=== PATIENT | male | born 1945 ===

== ENCOUNTER → 2018-03-18 | Outpatient (CLI) | payer OTHER ==
[~2018-03-18] MED LIST: METFORMIN HCL500 MG; [UNRECOGNIZED DRUG - OTHER]
== END | disposition home or self-care (01) ==
LOC: SONOGRAMA 09:59
DX: R10.84 Generalized abdominal pain (principal); N18.3 Chronic kidney disease, stage 3 (moderate); R31.9 Hematuria, unspecified

== ENCOUNTER → 2019-06-02 15:59 | Outpatient (CLI) | payer OTHER | END | disposition home or self-care (01) | LOC: LAB 15:59 | DX: D69.49 Other primary thrombocytopenia (principal) ==

== ENCOUNTER 2019-10-24 09:34 | Outpatient (CLI) | payer OTHER | END 2019-10-24 09:43 | disposition home or self-care (01) | LOC: LAB 09:34 | PROVIDERS: ATTEND Internal Medicine Hematology & Oncology | DX: D50.8 Other iron deficiency anemias (principal); I10 Essential (primary) hypertension; D51.1 Vitamin B12 deficiency anemia due to selective vitamin B12 malabsorption with proteinuria; D51.0 Vitamin B12 deficiency anemia due to intrinsic factor deficiency; D69.6 Thrombocytopenia, unspecified; E03.8 Other specified hypothyroidism; E06.3 Autoimmune thyroiditis; R97.0 Elevated carcinoembryonic antigen [CEA]; R97.8 Other abnormal tumor markers; R97.20 Elevated prostate specific antigen [PSA]; D63.1 Anemia in chronic kidney disease; D68.8 Other specified coagulation defects; B96.81 Helicobacter pylori [H. pylori] as the cause of diseases classified elsewhere; E11.9 Type 2 diabetes mellitus without complications; R94.5 Abnormal results of liver function studies; E78.2 Mixed hyperlipidemia; N41.8 Other inflammatory diseases of prostate ==

== ENCOUNTER 2019-12-29 09:00 | Outpatient (CLI) | payer OTHER | END 2019-12-29 15:00 | disposition home or self-care (01) | LOC: LAB 09:00 | PROVIDERS: ATTEND Internal Medicine Hematology & Oncology | DX: D50.8 Other iron deficiency anemias (principal); I10 Essential (primary) hypertension; D51.8 Other vitamin B12 deficiency anemias; E03.8 Other specified hypothyroidism; C73 Malignant neoplasm of thyroid gland; D69.6 Thrombocytopenia, unspecified; B96.81 Helicobacter pylori [H. pylori] as the cause of diseases classified elsewhere; E11.9 Type 2 diabetes mellitus without complications; R94.5 Abnormal results of liver function studies; E78.2 Mixed hyperlipidemia; N41.8 Other inflammatory diseases of prostate ==

== ENCOUNTER 2019-12-29 09:26 | Outpatient (CLI) | payer OTHER | END 2019-12-29 09:32 | disposition home or self-care (01) | LOC: SONOGRAMA 09:26 | PROVIDERS: ATTEND Internal Medicine Hematology & Oncology | DX: E03.8 Other specified hypothyroidism (principal); D69.49 Other primary thrombocytopenia; I10 Essential (primary) hypertension; B96.81 Helicobacter pylori [H. pylori] as the cause of diseases classified elsewhere; E11.9 Type 2 diabetes mellitus without complications; R94.5 Abnormal results of liver function studies; E78.2 Mixed hyperlipidemia; N41.8 Other inflammatory diseases of prostate; E04.2 Nontoxic multinodular goiter ==

== ENCOUNTER 2021-03-25 11:45 | Outpatient (CLI) | payer OTHER | END 2021-03-25 11:46 | disposition home or self-care (01) | LOC: RAD 11:45 | PROVIDERS: ATTEND Internal Medicine Geriatric Medicine | DX: M54.59 Other low back pain (principal) ==

== ENCOUNTER 2022-01-24 20:15 | Outpatient (CLI) | payer OTHER | END 2022-01-24 23:00 | disposition home or self-care (01) | LOC: LAB 20:15 | PROVIDERS: ATTEND Urology | DX: R97.20 Elevated prostate specific antigen [PSA] (principal) ==

== ENCOUNTER 2023-12-20 11:39 | Emergency (ER) | payer OTHER ==
[~2023-12-20] VITALS: Ht 182.9 cm; Wt 98.4 kg
[2023-12-20] MEDS ORDERED: CANDESARTAN CIL16 MG PO (11:45)
[2023-12-20] MEDS ORDERED: ATORVASTATIN CA40 MG PO (11:45)
[2023-12-20] MEDS ORDERED: TAMSULOSIN HCL0.4 MG PO (11:45)
[2023-12-20] MEDS ORDERED: GLIMEPIRIDE2 M1 PO (11:45)
[2023-12-20] MEDS ORDERED: TRAMADOL HCL 50 MG TABLET PO ONE (12:15)
[2023-12-20 12:45] LABS: HEMATOCRIT 46.1 % (39.0-48.0); HEMOGLOBIN 16.3 g/dL (13-16.00); MEAN CELL VOLUME 88.8 fL (80.0-100.00); MEAN CORPUSCULAR HEMOGLOBIN 31.4 pg (27.00-32.0); MEAN CORPUSCULAR HGB CONC 35.4 g/dl (32.0-36.0); RED BLOOD COUNT 5.19 M/uL (4.00-6.00)
[2023-12-20 12:47] LABS: PLATELET COUNT 122 K/uL (150-450)
[2023-12-20 12:57] LABS: ALBUMIN 3.7 gm/dL (3.4-5.0); BILIRUBIN TOTAL 0.75 mg/dL (0.3-1.2); CREATININE SERUM 1.4 mg/dL (0.70-1.30); ERYTHROCYTE SEDIMENTATION RATE 5 mm/hr; GFR 48.76; GLOBULINA 3.8 G/DL (2.4-3.5); POTASSIUM 4.14 mEq/L (3.5-5.1); TOTAL PROTEIN 7.5 gm/dL (6.4-8.2)
[2023-12-20] MEDS ORDERED: KETO10TA2 PO (15:16)
== END 2023-12-20 15:34 | disposition home or self-care (01) ==
LOC: ER 11:39
PROVIDERS: General Practice
DX: M25.572 Pain in left ankle and joints of left foot (principal); I10 Essential (primary) hypertension; E11.9 Type 2 diabetes mellitus without complications; Z79.84 Long term (current) use of oral hypoglycemic drugs

== ENCOUNTER → 2024-11-23 | Outpatient (CLI) | payer OTHER ==
[~2024-11-23] MED LIST changes: +ATORVASTATIN CA40 MG PO; +CANDESARTAN CIL16 MG PO; +GLIMEPIRIDE2 M1 PO; +KETO10TA2 PO; +TAMSULOSIN HCL0.4 MG PO
== END | disposition home or self-care (01) ==
LOC: SONOGRAMA 08:55
PROVIDERS: ATTEND Urology
DX: N40.1 Benign prostatic hyperplasia with lower urinary tract symptoms (principal); R33.9 Retention of urine, unspecified; N20.0 Calculus of kidney